=== PATIENT | female | born 1990 | race Caucasian/White ===

== ENCOUNTER 2022-10-29 02:00 | Day surgery (SDC) | payer OTHER, SELFPAY ==
[2022-10-23 08:47] VITALS: BMI 49.4
--- NOTE | 2022-10-23 08:56 | PC.NURSE ---
Report to the Outpatient Waiting Room, entrance under the green pavilion located off [facility], at time 1215 on date 10/29/22. Planned Procedure Time: 1415. Time changes happen often and if your time is changed the preop area will call you the afternoon before. - You and your visitor will be asked to self-screen and do not enter if you have any COVID symptoms. - A mask is optional within the hospital at this time. Patients may have clear liquids (water, carbonated beverages, clear teas, apple juice) until 3 hours prior to surgery with a maximum of 20 ounces. - No food from midnight until time of surgery Take the following medications with a SIP of water the morning of surgery: TYLENOL IF NEEDED DO NOT STOP ANY OF YOUR OTHER PRESCRIPTION MEDICATIONS PRIOR TO SURGERY ?EXCEPT THE FOLLOWING Medications to discontinue per physician: N/A Date to take last dose: N/A Please no make-up, nail swazi, hairspray, perfume, deodorant, or body powder the day of surgery. No jewelry (including any body piercings) or valuables the day of surgery, leave them at home. Please take a shower or bath the night before, or the morning of, surgery with an antibacterial soap. Wear comfortable, loose fitting clothing. - Jewelry must be removed prior to entering the operating room. Rings and piercings that are not removed may be cut off. - The hospital will not accept responsibility for valuables. - Please leave all valuables, including medications, at home the day of surgery. If you are going home after surgery, a licensed driver material handler must drive you home. - NO public transportation without another adult if you receive anesthesia. - We recommend that an adult stay with you for 24 hours following discharge. - We also recommend that you do not drive, make important decision, drink alcoholic beverages, or take any drugs that were not prescribed by your health care provider for at least 24 hours after your discharge time. Follow any additional instructions given to you from your surgeon. If you or anyone in your household have experienced Covid symptoms in the past week, please notify your surgeon or the nurse liaison at the phone number below for possible testing. Telephone instructions given to PT - LUIS ROMAN and asked if any additional questions and then verbalized understanding. Patient advised to call surgeon office or pre surgery nurse liaison [phone] if any additional questions.
--- NOTE | 2022-10-29 07:43 | P.HP_ITS ---
History of Present Illness History of Present Illness Consent: Risks, benefits, and alternatives have been discussed and questions answered. Patient agrees to proceed with procedure. Chief complaint: Thickened Endometrium Narrative: Hafsa Wallace is a 32 year old female with irregular cycles. Patient's last normal cycle was February of 2022. She has had multiple episodes of spotting since that time. The patient was given oral contraceptives to induce a cycle and had heavy bleeding in August. Patient's bleeding episode lasted approximately 2 weeks. Pelvic ultrasound showed a thickened lining at 2.3cm. It was recommended to undergo D&C hysteroscopy. Risks of infection, bleeding, perforation, and possible pathology are discussed. Patient voices understanding and agrees to proceed. Review of Systems Review of Systems: not repeated day of surgery; patient states no changes in status [facility] Past Medical History Medical History (Updated 10/29/22 @ 11:09 by Esme Gaytan MD) ADHD Autism Borderline diabetes Social History Social History Smoking status: Former smoker Tobacco type: cigarettes Additional smoking assessment comments: HIGH SCHOOL/COLLEGE Alcohol intake: current Alcohol use details: VERY RARE Substance use: never Substance use type: does not use Living arrangements: with family Additional living arrangements comments: [place] Spiritual care concerns: No Meds Home Medications and Allergies Home Medications Medication Instructions Recorded Confirmed Type acetaminophen 650 mg 650 mg PO Q12H PRN Pain 10/23/22 10/23/22 History tablet,extended release (Tylenol 8 Hour) cetirizine 10 mg tablet (Zyrtec) 10 mg PO DAILY 10/23/22 10/23/22 History Allergies Allergy/AdvReac Type Severity Reaction Status Date / Time benzoyl peroxide Allergy Rash Verified 10/23/22 09:08 Exam Const: General: alert and obese (BMI of 50 weighing 310 lb) Orientation/consciousness: patient oriented x3 Resp: Effort & Inspection: normal respiratory effort GI: GI Palp: Yes Soft to palpation, No Tenderness to palpation present (GI) and No Palpable mass present : External Female Exam: normal external appearance Speculum Exam - Vagina: normal appearance of the vagina and normal vaginal discharge Speculum Exam - Cervix: normal appearance of the cervix Bimanual exam- vagina & uterus: uterine size normal and consistency normal Bimanual Exam- Adnexa, other: normal adnexae and No adnexal tenderness Neuro: General: patient oriented x3 Assessment and Plan Assessment and plan (1) Irregular menses: Code(s): N92.6 - Irregular menstruation, unspecified Status: Acute Assessment and Plan: Plan to proceed with D&C hysteroscopy (2) Thickened endometrium: Code(s): R93.89 - Abnormal findings on diagnostic imaging of other specified body structures Status: Acute
--- NOTE | 2022-10-29 07:43 | WPDHPUPDATE1 ---
History and Physical Update Update Date/Time: 10/29/22 07:43 History and Physical has been reviewed, including an updated exam of the patient. There are NO changes in the patient's condition. Risks, benefits, and alternatives have been discussed and questions answered. Patient agrees to proceed with procedure.
--- NOTE | 2022-10-29 12:24 | WPDANESEPPF ---
Anes - Initial Pre Proc Eval Procedure: Operation Date: 10/29/22 13:30 Proposed Procedures p Hysteroscopy Dilation and Curettage - Esme Gaytan MD Date/Time: 10/29/22 12:24 Surgeon: Esme Gaytan MD Pre Op Diagnosis: Thickened Endometrium Patient Data Age: 32 Gender: F Height: 1.68 m Weight: 139 kg Allergies Allergy/AdvReac Type Severity Reaction Status Date / Time benzoyl peroxide Allergy Rash Verified 10/23/22 09:08 Home Medications Medication Instructions Recorded Confirmed Type acetaminophen 650 mg 650 mg PO Q12H PRN Pain 10/23/22 10/23/22 History tablet,extended release (Tylenol 8 Hour) cetirizine 10 mg tablet (Zyrtec) 10 mg PO DAILY 10/23/22 10/23/22 History Patient hx anesthesia problems: none Family hx anesthesia problems: none Results Review: All pre-operative results and documents have been reviewed as part of the pre-operative evaluation. [facility] Past Medical History Medical History (Updated 10/29/22 @ 11:09 by Esme Gaytan MD) ADHD Autism Borderline diabetes Social History Social History Smoking status: Former smoker Tobacco type: cigarettes Additional smoking assessment comments: HIGH SCHOOL/COLLEGE Alcohol intake: current Alcohol use details: VERY RARE Substance use: never Substance use type: does not use Living arrangements: with family Additional living arrangements comments: [place] Spiritual care concerns: No Anes - Eval Final PreProcedure Day of Procedure 10/29/22 12:24 Patient weight: super morbidly obese Heart: regular rate and rhythm Lungs: clear to auscultation Airway: Mallampati scale class III Neurological: alert and oriented Last oral intake: >/= 8 hours ASA classification: III Emergent: no Anesthetic plan: proceed Anesthesia type and monitoring: general GIVS (may use LMA) and standard monitoring Results Review: All pre-operative results and documents have been reviewed as part of the pre-operative evaluation. Informed Consent: The patient's anesthetic plan and its attendant risks and benefits were discussed with the patient/family/POA. Questions were solicited and answers provided to the satisfaction of the patient/family/POA.
[2022-10-29 13:18] VITALS: BP 152/98; PULSE 92; RESP 14; TEMP 37; O2SAT 99
[2022-10-29] MEDS: ACETAMINOPHEN 500 MG TABLET 1000 MG PO (13:20)
[2022-10-29] MEDS: LACTATED RINGERS 1,000 ML 30 ML IV CONT (13:21)
[2022-10-29] MEDS: KETOROLAC 30 MG/ML VIAL (*BKC) IV PUSH (13:39)
[2022-10-29 13:55] VITALS: BP 136/88; PULSE 74; RESP 16; O2SAT 96
--- NOTE | 2022-10-29 13:57 | W.PM.PROC2 ---
Procedure Note - Detailed Date of Procedure 10/29/22 Pre-op Diagnosis Irregular bleeding and thickened Endometrium Post-op Diagnosis Same Procedure Performed D&C hysteroscopy with resection of polyps Surgeon Esme Gaytan MD Anesthesia MAC Findings Uterus sounds to 8cm and there are multiple polyps throughout the uterus. One possible fibroid. Description of Procedure The patient is taken to operating room and placed under anesthesia in the dorsal lithotomy position. She was prepped and draped in the usual sterile fashion. [place] speculum was placed in the vagina and the cervix grasped on the anterior lip with a tenaculum. The uterus sounded to 8cm. The hysteroscope was placed and with the above-stated findings the Aveeta resection device is placed. Under direct visualization the multiple polyps are excised in their entirety. One from the left sidewall had a more firm texture consistent with a possible fibroid. The hysteroscope was then removed and the 00 sharp curette used to curette the endometrium until a good uterine cry noted in all areas. All instruments were then removed. Sponge, needle, and instrument counts are correct per the OR staff. The patient is awakened from anesthesia and taken to recovery in stable condition. Estimated Blood Loss 5 Drains No Packing No Pathology Yes (Endometrial shavings and curettings) Complications No immediate complications Condition Stable Disposition PACU
[2022-10-29 14:26] VITALS: BP 128/81; PULSE 66; RESP 16; O2SAT 97
[2022-10-29 14:54] VITALS: BP 126/93; PULSE 69; RESP 16
[2022-10-29 15:10] VITALS: BP 129/65; PULSE 66; RESP 16
== END 2022-10-29 15:20 | disposition home or self-care (01) ==
PROVIDERS: Visit Provider Obstetrics & Gynecology Gynecology
PROC: 0U5B8ZZ Destruction of Endometrium, Via Natural or Artificial Opening Endoscopic (ICD-10-PCS; CPT 58563; principal; 2022-10-29 13:30)
DX: N92.6 Irregular menstruation, unspecified (principal); N84.0 Polyp of corpus uteri; Z87.891 Personal history of nicotine dependence
CPT/HCPCS: 58558; 88305; A9270; J1885; J2250; J2704; J3010; J7120